=== PATIENT | male | born 1975 | race Caucasian/White ===

== ENCOUNTER → 2016-07-16 | Outpatient (CLI) | payer BC | LOC: BHSO 07:58 | DX: F33.41 Major depressive disorder, recurrent, in partial remission (principal) ==

== ENCOUNTER → 2017-01-14 | Outpatient (CLI) | payer BC | LOC: BHSO 07:56 | DX: F33.42 Major depressive disorder, recurrent, in full remission (principal) ==

== ENCOUNTER → 2017-07-22 | Outpatient (CLI) | payer BC | LOC: BHSO 13:34 | DX: F33.42 Major depressive disorder, recurrent, in full remission (principal) | CPT/HCPCS: G0463 ==

== ENCOUNTER → 2017-09-29 | Outpatient (CLI) | payer BC | LOC: BHSO 13:55 | DX: F33.1 Major depressive disorder, recurrent, moderate (principal) ==